=== PATIENT | female | born 1965 | race Caucasian/White ===

== ENCOUNTER 2017-11-20 10:58 | Emergency (ER) | payer OTHER ==
[2017-11-20 11:05] VITALS: TEMP 98; BMI 31.7
--- NOTE | 2017-11-20 11:38 | PDOC ---
Attending Attestation - HPI HPI: 11/20/17 12:44 The patient is a 52 year old female, with a significant past medical history of L Tavares's palsy, tummy tuck with nerve injury and L thigh numbness, GERD, HTN, who presents to the emergency department with over a week of dizziness. She notes that the symptom has resolved during presentation. She reports that her symptom is usually onset when she stands up. The patient denies chest pain, shortness of breath, headache. Denies fever, chills, nausea, vomit, diarrhea and constipation. Denies dysuria, frequency, urgency and hematuria. Allergies: None Past surgical history: None reported Social history: No alcohol, tobacco or drug use reported - Physicial Exam PE: 11/20/17 12:41 GENERAL: Awake, alert, and fully oriented, in no acute distress HEAD: No signs of trauma, normocephalic, atraumatic EYES: PERRLA, EOMI, sclera anicteric, conjunctiva clear ENT: Auricles normal inspection, hearing grossly normal, nares patent, oropharynx clear without exudates. Moist mucosa NECK: Normal ROM, supple, no lymphadenopathy, JVD, or masses LUNGS: No distress, speaks full sentences, clear to auscultation bilaterally HEART: Regular rate and rhythm, normal S1 and S2, no murmurs, rubs or gallops, peripheral pulses normal and equal bilaterally. ABDOMEN: Soft, nontender, normoactive bowel sounds. No guarding, no rebound. No masses EXTREMITIES : Normal inspection, Normal range of motion, no edema. No clubbing or cyanosis. NEUROLOGICAL: Cranial nerves II through XII grossly intact. Normal speech, ambulates with steady gait, no focal sensorimotor deficits SKIN: Warm, Dry, normal turgor, no rashes or lesions noted. <Jasson Woodruff - Last Filed: 11/20/17 12:44> - Resident Resident Name: Tramaine Christiansen - ED Attending Attestation I have performed the following: I have examined & evaluated the patient, The case was reviewed & discussed with the resident, I agree w/resident's findings & plan, Exceptions are as noted - Medical Decision Making 11/20/17 11:38 I, Dr. Luz Maria Irby, DO, attest that this document has been prepared under my direction and personally reviewed by me in its entirety. I further attest, that it accurately reflects all work, treatment, procedures and medical decision -making performed by me. 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
--- NOTE | 2017-11-20 12:01 | PDOC ---
History of Present Illness - General Chief Complaint: Lightheaded Stated Complaint: DIZZINESS Time Seen by Provider: 11/20/17 11:29 - History of Present Illness Initial Comments: 11/20/17 11:55 Pt is a 52 y/o F w/ PMH L Tavares's palsy, tummy tuck with nerve injury and L thigh numbness, GERD, HTN who presents to ED with dizziness. She had dizziness last week for 3 days and it resolved. Symptoms returned yesterday and were worse. Pt describes symptoms only when she's standing, describes "the world spinning", and caused her to drop some food while cooking yesterday. Pt denies any weakness and tingling. Denies ear pain, headache, and fever. Pt measured her glucose at home using her mother's machine and states it was normal. No other complaints. Stable, afebrile, in NAD. Past History - Past Medical History Allergies/Adverse Reactions: Allergies Allergy/AdvReac Type Severity Reaction Status Date / Time No Known Allergies Allergy Verified 11/20/17 11:05 Home Medications: Ambulatory Orders Meclizine HCl [Antivert -] 25 mg PO BID PRN #10 tablet 11/20/17 Omeprazole 20 mg PO DAILY 11/20/17 COPD: No DVT: No GI Disorders: Yes (GASTRITIS) HTN: Yes - Surgical History Abdominal Surgery: Yes (GASTRIC BYPASS) Cholecystectomy: Yes - Immunization History Immunization Up to Date: Yes - Suicide/Smoking/Psychosocial Hx Smoking History: Never smoked Hx Alcohol Use: No Drug/Substance Use Hx: No Substance Use Type: None Review of Systems - Review of Systems Able to Perform ROS?: Yes Is the patient limited Thai proficient: No Constitutional: Yes: Symptoms Reported. No: Chills, Diaphoresis, Fever, Night Sweats, Weakness HEENTM: Yes: Symptoms Reported. No: Eye Pain, Blurred Vision, Tearing, Ear Pain , Nose Congestion, Tinnitus, Throat Pain Respiratory: Yes: Symptoms reported. No: Cough, Shortness of Breath, Wheezing Cardiac (ROS): Yes: Symptoms Reported. No: Chest Pain, Edema ABD/GI: Yes: Symptoms Reported. No: Constipated, Diarrhea, Nausea, Poor Fluid Intake, Vomiting : Yes: Symptoms Reported. No: Burning, Dysuria Neurological: Yes: Symptoms reported, Dizziness (vertigo) *Physical Exam - Vital Signs Last Vital Signs Temp Pulse Resp BP Pulse Ox 98.0 F 93 H 20 134/79 100 11/20/17 11:03 11/20/17 11:03 11/20/17 11:03 11/20/17 11:03 11/20/17 11:03 - Physical Exam General Appearance: Yes: Nourished, Appropriately Dressed. No: Apparent Distress HEENT: positive: EOMI (horizontal nystagmus), MAHESH, Normal ENT Inspection Neck: positive: Supple. negative: Tender, Carotid bruit, Thyromegaly Respiratory/Chest: positive: Lungs Clear, Normal Breath Sounds. negative: Chest Tender Cardiovascular: positive: Regular Rhythm, Regular Rate, S1, S2 (soft s1), Systolic Murmur (soft s1, blowing 3/6 murmur). negative: Edema, JVD Vascular Pulses: Dorsalis-Pedis (R): 2+, Doralis-Pedis (L): 2+ Gastrointestinal/Abdominal: positive: Normal Bowel Sounds, Flat, Soft. negative : Tender, Organomegaly, Guarding, Rebound, Tenderness Neurologic: positive: Fully Oriented, Alert, Normal Mood/Affect, Motor Strength 5/5. 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 HINTS neg. Plan -labs -orthostatics -Meclizine 11/20/17 12:34 BP layin/91, sittin/78, standin/71 Orthostatic hypotension. labs, IV lock, NS 11/20/17 13:37 CBC unremarkable 11/20/17 13:43 Labs unremarkable. Pt feels much better. No dizziness. Able to stand and ambulate without difficulty. stable, afebrile, NAD 11/20/17 13:48 *DC/Admit/Observation/Transfer Diagnosis at time of Disposition: Peripheral vertigo Qualifiers: Laterality: unspecified laterality Qualified Code(s): H81.399 - Other peripheral vertigo, unspecified ear - Discharge Dispostion Disposition: HOME Condition at time of disposition: Stable Admit: No - Prescriptions Prescriptions: Meclizine HCl [Antivert -] 25 mg PO BID PRN #10 tablet PRN Reason: Vertigo - Referrals Referrals: Itzel Stein MD [Primary Care Provider] - - Patient Instructions Printed Discharge Instructions: DI for Vertigo Additional Instructions: Please make sure you follow up with your primary doctor. Please take all your prescription medications as directed. If your symptoms get worse of if you develop new symptoms, please return to the emergency department. - Post Discharge Activity
[2017-11-20] MEDS ORDERED: MECLIZINE HCL 25 MG TABLET (FP) PO ONE (12:15)
[2017-11-20] MEDS ORDERED: MECLIZINE HCL 25 MG TABLET (FP) ONE (12:19)
[2017-11-20] MEDS ORDERED: SODIUM CHLORIDE 1,000 ML IV STA (13:00)
[2017-11-20 13:08] LABS: BASO % 1.5 % (0-2.0); EOS % 9.9 % (0-4.5); HEMATOCRIT 38.6 % (32.4-45.2); HEMOGLOBIN 12.7 GM/dL (10.7-15.3); LYMPH % 29.7 % (8-40); MCH 26.3 pg (25.7-33.7); MCHC 32.9 g/dl (32.0-36.0); MEAN CELL VOLUME 80.1 fl (80-96); MEAN PLT VOLUME 10.4 fl (7.5-11.1); NEUT % 52.9 % (42.8-82.8); PLATELET COUNT 220 K/MM3 (134-434); RBC 4.82 M/mm3 (3.60-5.2); RDW 13.5 % (11.6-15.6); WHITE BLOOD COUNT 7.5 K/mm3 (4.0-10.0)
[2017-11-20 13:37] LABS: ALBUMIN 3.8 g/dl (3.4-5.0); ANION GAP 5 (8-16); BILIRUBIN,TOTAL 0.5 mg/dL (0.2-1.0); BLOOD UREA NITROGEN 10 mg/dL (7-18); CALCIUM 8.2 mg/dL (8.5-10.1); CHLORIDE 110 mmol/L (98-107); CO2 27 mmol/L (21-32); CREATININE 0.6 mg/dL (0.55-1.02); GLUCOSE,RANDOM 110 mg/dL (74-106); MAGNESIUM 2.3 mg/dL (1.8-2.4); POTASSIUM 3.9 mmol/L (3.5-5.1); SGOT/AST 12 U/L (15-37); SGPT/ALT 18 U/L (12-78); SODIUM 142 mmol/L (136-145); TOT PROT 7.1 g/dl (6.4-8.2)
[2017-11-20 13:38] LABS: ALK PHOS 100 U/L (45-117)
[2017-11-20 14:43] VITALS: BP 142/90; PULSE 68
== END 2017-11-20 14:43 | disposition home or self-care (01) ==
LOC: JER 10:58
PROC: 3E0337Z Introduction of Electrolytic and Water Balance Substance into Peripheral Vein, Percutaneous Approach (ICD-10-PCS; principal; 2017-11-20)
DX: H81.399 Other peripheral vertigo, unspecified ear (principal); I10 Essential (primary) hypertension; K21.9 Gastro-esophageal reflux disease without esophagitis; Z86.69 Personal history of other diseases of the nervous system and sense organs
CPT/HCPCS: 36415; 80053; 83735; 85025; 96360; 99282-25

== ENCOUNTER 2022-03-21 11:12 | Emergency (ER) | payer OTHER ==
[2022-03-21 11:21] VITALS: BMI 32.5
[2022-03-21 13:12] LABS: BASO % 1.6 % (0-2.0); EOS % 1.9 % (0-4.5); HEMATOCRIT 36.5 % (32.4-45.2); HEMOGLOBIN 12.5 GM/dL (10.7-15.3); LYMPH % 27.3 % (8-40); MCH 26.6 pg (25.7-33.7); MCHC 34.3 g/dl (32.0-36.0); MEAN CELL VOLUME 77.8 fl (80-96); MEAN PLT VOLUME 10.4 fl (7.5-11.1); MONO % 10.8 % (3.8-10.2); NEUT % 58.4 % (42.8-82.8); PLATELET COUNT 253 10^3/uL (134-434); RBC 4.69 M/mm3 (3.60-5.2); RDW 13.5 % (11.6-15.6)
[2022-03-21 13:37] LABS: CALCIUM 9.2 mg/dL (8.5-10.1)
[2022-03-21 13:38] LABS: ALBUMIN 3.8 g/dl (3.4-5.0); BLOOD UREA NITROGEN 8.1 mg/dL (7-18)
[2022-03-21 13:41] LABS: CREATININE 0.5 mg/dL (0.55-1.3)
[2022-03-21 13:43] LABS: BILIRUBIN,TOTAL 0.4 mg/dL (0.2-1); TOT PROT 7.3 g/dl (6.4-8.2)
[2022-03-21 16:58] VITALS: BP 161/81; PULSE 88; TEMP 97.9
[2022-03-21] MEDS ORDERED: predniSONE 20 MG TABLET (UD) PO ONE (17:39)
[2022-03-21] MEDS ORDERED: valACYclovir HCL 1000 MG TABLET PO ONE (17:39)
[2022-03-21] MEDS ORDERED: predniSONE 20 MG TABLET (UD) ONE (17:46)
[2022-03-21] MEDS ORDERED: valACYclovir HCL 500 MG TABLET (FP) ONE (17:46)
== END 2022-03-21 18:08 | disposition home or self-care (01) ==
LOC: JER 11:12
DX: R29.810 Facial weakness (principal)
CPT/HCPCS: 0241U-QW; 36415; 70450-TC; 70551-TC; 80053; 85025; 86618; 99285-25

== ENCOUNTER 2024-04-02 12:24 | Emergency (ER) | payer OTHER ==
[2024-04-02 12:53] VITALS: RESP 18; TEMP 97.3; BMI 34.3
[2024-04-02] MEDS ORDERED: MECLIZINE HCL 25 MG TABLET (FP) ONE (15:10)
[2024-04-02] MEDS ORDERED: METOCLOPRAMIDE HCL INJECTION 10 MG/2 ML VIAL ONE (15:10)
[2024-04-02] MEDS ORDERED: ACETAMINOPHEN INJECTION 100 ML IVPB ONE (15:10)
[2024-04-02 15:16] LABS: BASO % 0.7 % (0-2.0); EOS % 2.6 % (0-4.5); HEMATOCRIT 38.4 % (32.4-45.2); HEMOGLOBIN 13.1 GM/dL (10.7-15.3); LYMPH % 32.9 % (8-40); MCH 26.4 pg (25.7-33.7); MEAN CELL VOLUME 77.7 fl (80-96); MONO % 8.7 % (3.8-10.2); NEUT % 55.1 % (42.8-82.8); PLATELET COUNT 282 10^3/uL (134-434); RBC 4.94 M/mm3 (3.60-5.2); RDW 14.1 % (11.6-15.6); WHITE BLOOD COUNT 9.6 K/mm3 (4.0-10.0)
[2024-04-02] MEDS: ACETAMINOPHEN 1000 MG/100 ML BAG IVPB ONE (15:19)
[2024-04-02] MEDS: METOCLOPRAMIDE HCL INJECTION 10 MG/2 ML VIAL IVPUSH ONE (15:19)
[2024-04-02] MEDS: MECLIZINE HCL 25 MG TABLET (FP) PO ONE (15:19)
[2024-04-02] MEDS: SODIUM CHLORIDE 1,000 ML IV ONE (15:19)
[2024-04-02 15:28] LABS: INR 1.01 (0.83-1.09); PROTHROMBIN TIME (PATIENT) 11.6 SEC (9.7-13.0)
[2024-04-02 15:35] LABS: POTASSIUM 3.7 mmol/L (3.5-5.1)
[2024-04-02 15:37] LABS: CALCIUM 9.3 mg/dL (8.5-10.1)
[2024-04-02 15:38] LABS: ALBUMIN 4.1 g/dl (3.4-5.0); BLOOD UREA NITROGEN 11.7 mg/dL (7-18); MAGNESIUM 2.4 mg/dL (1.8-2.4)
[2024-04-02 15:41] LABS: CREATININE 0.7 mg/dL (0.55-1.3); PHOSPHOROUS 4.4 mg/dL (2.5-4.9)
[2024-04-02 15:43] LABS: BILIRUBIN,TOTAL 0.4 mg/dL (0.2-1)
[2024-04-02 17:02] VITALS: BP 136/70; PULSE 76
== END 2024-04-02 17:02 | disposition home or self-care (01) ==
LOC: JER 12:24
PROC: 3E033NZ Introduction of Analgesics, Hypnotics, Sedatives into Peripheral Vein, Percutaneous Approach (ICD-10-PCS; principal; 2024-04-02)
PROC: 3E033GC Introduction of Other Therapeutic Substance into Peripheral Vein, Percutaneous Approach (ICD-10-PCS; 2024-04-02)
PROC: 3E0337Z Introduction of Electrolytic and Water Balance Substance into Peripheral Vein, Percutaneous Approach (ICD-10-PCS; 2024-04-02)
DX: R42 Dizziness and giddiness (principal); R51.9 Headache, unspecified; R06.02 Shortness of breath; R55 Syncope and collapse; R61 Generalized hyperhidrosis; R11.10 Vomiting, unspecified; R68.83 Chills (without fever); R53.83 Other fatigue; H53.2 Diplopia; W19.XXXA Unspecified fall, initial encounter; Z20.822 Contact with and (suspected) exposure to COVID-19
CPT/HCPCS: 0241U-QW; 36415; 71046-TC-FY; 80053; 83735; 84100; 84484; 85025; 85610; 99285-25; J0131